=== PATIENT | female | born 1935 | race Caucasian/White ===

== ENCOUNTER 2021-09-22 11:52 | Emergency (ER) | payer MEDICARE, BC ==
[2021-09-22 12:17] VITALS: BP 177/66; PULSE 76
[2021-09-22] MEDS ORDERED: Oxymetazoline 0.05% Nasal Spray 30 ML Bottle NAS ONE (13:18)
--- NOTE | 2021-09-22 13:49 | CR ---
PROCEDURE INFORMATION: Exam: XR Sinus Exam date and time: 09/22/2021 1:22 PM Age: 85 years old Clinical indication: Other: Sinus pain/pressure, bloody mucus drainage TECHNIQUE: Imaging protocol: XR of the sinuses and paranasal structures. Views: Minimum of 3 views. COMPARISON: No relevant prior studies available. FINDINGS: Sinuses: The frontal and maxillary sinuses are grossly clear, without air-fluid level. Bones/joints: No acute fracture is identified. The temporomandibular joints are normally aligned. Dental: Dental amalgam is noted. Soft tissues: The soft tissues appear grossly unremarkable. IMPRESSION: Grossly clear frontal and maxillary sinuses. CT would be more sensitive to sinus disease.
--- NOTE | 2021-09-22 14:16 | EDM.PDOC ---
Scribed by Alina Greene 09/22/21 1347 for Erica Batres MD ED HPI GENERAL MEDICAL PROBLEM - General Chief Complaint: ENT Problem Stated Complaint: SINUS INFECTION Time Seen by Provider: 09/22/21 13:07 Source of Information: Reports: Patient, RN, RN Notes Reviewed History Limitations: Reports: No Limitations - History of Present Illness INITIAL COMMENTS - FREE TEXT/NARRATIVE: Patient presents to ED by POV with complaint of sinuses feeling tight since Thursday with bloody mucus drainage. Denies fever, cough, chest pain, or neck pain/stiffness. Onset: Gradual Duration: Constant Location: Reports: Other (sinuses) Severity: Severe Improves with: Reports: None Worsens with: Reports: None Associated Symptoms: Reports: No Other Symptoms - Related Data Allergies Allergy/AdvReac Type Severity Reaction Status Date / Time amlodipine besylate Allergy Rash Verified 09/22/21 12:13 [From Lotrel] benazepril HCl [From Lotrel] Allergy Rash Verified 09/22/21 12:13 hydrocodone Allergy Rash Verified 09/22/21 12:13 nifedipine Allergy Hives Verified 09/22/21 12:13 rosuvastatin Allergy Body Aches Verified 09/22/21 12:13 Home Meds: Home Meds Aspirin [Halfprin] 81 mg PO DAILY 01/18/16 [History] Calcium Carbonate [Calcium] 1 tab PO BID 01/18/16 [History] Cholecalciferol (Vitamin D3) [Vitamin D3] 2 tab PO DAILY 01/18/16 [History] Enalapril [Vasotec] 20 mg PO BID 01/18/16 [History] Furosemide 40 mg PO DAILY 01/18/16 [History] Insulin NPH/Insulin Reg,Human [NovoLIN 70-30] 80 unit SQ ACBREAKFAST 01/18/16 [History] Latanoprost [Xalatan 0.005% Ophth Soln] 1 drop EYEBOTH BEDTIME 01/18/16 [History] atorvaSTATin [Lipitor] 80 mg PO BEDTIME 01/18/16 [History] carvediloL [Carvedilol] 25 mg PO BID 01/18/16 [History] Clobetasol [Temovate 0.05% Oint] 1 applic TOP ASDIRECTED PRN 06/20/16 [History] Insulin NPH Hum/Reg Insulin Hm [Novolin 70-30 100 Unit/ml Vial] 40 unit SQ ACDINNER 09/18/18 [History] Past Medical History HEENT History: Reports: Glaucoma Cardiovascular History: Reports: High Cholesterol, Hypertension Respiratory History: Reports: Sleep Apnea Gastrointestinal History: Reports: Chronic Constipation, GERD Genitourinary History: Reports: UTI, Recurrent [employer] History: Reports: Musculoskeletal History: Reports: Other (See Below) Other Musculoskeletal History: spinal stenosis Neurological History: Reports: None Psychiatric History: Reports: None Endocrine/Metabolic History: Reports: Diabetes, Type II, Obesity/BMI 30+ Hematologic History: Reports: None Immunologic History: Reports: None Oncologic (Cancer) History: Reports: None Dermatologic History: Reports: None - Infectious Disease History Infectious Disease History: Reports: Chicken Pox, Measles - Past Surgical History HEENT Surgical History: Reports: Adenoidectomy, Tonsillectomy GI Surgical History: Reports: Colonoscopy Musculoskeletal Surgical History: Reports: Hip Replacement Social & Family History - Family History HEENT: Reports: Cataract Cardiac: Reports: None Respiratory: Reports: None GI: Reports: None : Reports: None OBGYN: Reports: None Musculoskeletal: Reports: None Neurological: Reports: None Psychiatric: Reports: None Endocrine/Metabolic: Reports: Diabetes, type II Hematologic: Reports: None Immunologic: Reports: None Oncologic: Reports: Bone - Tobacco Use Tobacco Use Status *Q: Never Tobacco User - Caffeine Use Caffeine Use: Reports: Coffee, Tea - Recreational Drug Use Recreational Drug Use: No - Living Situation & Occupation Occupation: Retired ED ROS ENT - Review of Systems Review Of Systems: Comprehensive ROS is negative, except as noted in HPI. ED EXAM, ENT - Physical Exam Exam: See Below Exam Limited By: No Limitations General Appearance: Alert, WD/WN, No Apparent Distress, Obese Eye Exam: Bilateral Eye: EOMI, Normal Inspection, PERRL Ears: Normal External Exam, Normal Canal, Hearing Grossly Normal, Normal TMs Nose: Nasal Discharge (Yellow with small blood streaks.), Nasal Swelling (Inflammed, swollen, congested nasal mucosa.), Injected Turbinates. No: Active Bleeding, Dried Blood Mouth/Throat: Normal Inspection, Normal Gums, Normal Lips, Normal Oropharynx, Normal Teeth Head: Atraumatic, Normocephalic Neck: Normal Inspection, Supple, Non-Tender, Full Range of Motion Respiratory/Chest: No Respiratory Distress, Lungs Clear, Normal Breath Sounds, No Accessory Muscle Use, Chest Non-Tender Cardiovascular: Regular Rate, Rhythm Neurological: Alert, Oriented, CN II-XII Intact, No Motor/Sensory Deficits Psychiatric: Normal Affect, Normal Mood Skin: Warm, Dry, Intact, Normal Color, No Rash Course - Vital Signs Last Recorded V/S: Last Vital Signs Temp 97.6 F 09/22/21 12:15 Pulse 76 09/22/21 12:15 Resp 18 09/22/21 12:15 BP 177/66 H 09/22/21 12:15 Pulse Ox 97 09/22/21 12:15 - Orders/Labs/Meds Orders: Active Orders 24 hr Category Date Time Status Isolation [COMM] Routine Oth 09/22/21 13:18 Active Labs: Influenza A/B: negative Meds: Medications Discontinued Medications Generic Name Dose Route Start Last Admin Trade Name Freq PRN Reason Stop Dose Admin Oxymetazoline HCl 1 ml 09/22/21 13:18 09/22/21 13:32 Oxymetazoline 0.05% Nasal Thayer 30 Ml Bottle ANIL 09/22/21 13:19 1 ml ONETIME ONE Administration - Radiology Interpretation Free Text/Narrative:: [facility] Final Radiology Report Call: [phone] assistance Online chat: [email or web address] Name: DELROY ESPINOZA Age: 85Years F Date: 09/22/2021 SSN: -- : [id number] Study: CR SINUS COMP MIN 3V Requesting Physician: ERICA BATRES Images: 4 Addl Studies: Provided Clinical History: sinus pain/pressure, bloody mucus drainage Contrast: Contrast Medium: Contrast Amount: Contrast Method: CONFIDENTIALITY STATEMENT This report is intended only for use by the referring physician, and only in accordance with law. If you received this in error, call [phone]. Page 1 of 1 PROCEDURE INFORMATION: Exam: XR Sinus Exam date and time: 09/22/2021 1:22 PM Age: 85 years old Clinical indication: Other: Sinus pain/pressure, bloody mucus drainage TECHNIQUE: Imaging protocol: XR of the sinuses and paranasal structures. Views: Minimum of 3 views. COMPARISON: No relevant prior studies available. FINDINGS: Sinuses: The frontal and maxillary sinuses are grossly clear, without air-fluid level. Bones/joints: No acute fracture is identified. The temporomandibular joints are normally aligned. Dental: Dental amalgam is noted. Soft tissues: The soft tissues appear grossly unremarkable. IMPRESSION: Grossly clear frontal and maxillary sinuses. CT would be more sensitive to sinus disease. Thank you for allowing us to participate in the care of your patient. Dictated and Authenticated by: Alon Mullen MD 09/22/2021 1:48 PM Central Time ([place] & [place]) Departure - Departure Time of Disposition: 14:14 Disposition: Home, Self-Care 01 Condition: Good Clinical Impression: Sinusitis Qualifiers: Sinusitis location: unspecified location Chronicity: acute Recurrence: non- recurrent Qualified Code(s): J01.90 - Acute sinusitis, unspecified - Discharge Information *PRESCRIPTION DRUG MONITORING PROGRAM REVIEWED*: Not Applicable *COPY OF PRESCRIPTION DRUG MONITORING REPORT IN PATIENT [place]: Not Applicable Instructions: Sinusitis, Adult, [id number] Forms: ED Department Discharge Additional Instructions: Rx: Augmentin 875mg Use over the counter Coricidin HBP for a blood pressure safe decongestant. Follow up in clinic if not improving in 7 to 10 days. Sepsis Event Note (ED) - Evaluation Sepsis Screening Result: No Definite Risk - Focused Exam Vital Signs: Vital Signs Temp Pulse Resp BP Pulse Ox 09/22/21 12:15 97.6 F 76 18 177/66 H 97 - My Orders Last 24 Hours: My Active Orders 09/22/21 13:18 Isolation [COMM] Routine - Assessment/Plan Last 24 Hours: My Active Orders 09/22/21 13:18 Isolation [COMM] Routine I have read and agree with the documentation that has been completed regarding this visit. By signing this record, I attest that the documentation was completed in my physical presence and is an accurate record of the encounter.
== END 2021-09-22 14:24 | disposition home or self-care (01) ==
LOC: DL.ED 11:52
DX: J01.90 Acute sinusitis, unspecified (principal); I10 Essential (primary) hypertension; E78.00 Pure hypercholesterolemia, unspecified; K21.9 Gastro-esophageal reflux disease without esophagitis; E11.9 Type 2 diabetes mellitus without complications; E66.9 Obesity, unspecified; Z68.32 Body mass index [BMI] 32.0-32.9, adult; Z79.82 Long term (current) use of aspirin; Z79.899 Other long term (current) drug therapy; Z88.8 Allergy status to other drugs, medicaments and biological substances; Z88.1 Allergy status to other antibiotic agents; Z79.4 Long term (current) use of insulin
CPT/HCPCS: 70220; 87804; 99283; A9270

== ENCOUNTER 2022-01-07 23:16 | Inpatient (IN) | payer MEDICARE, BC ==
[2022-01-08] MEDS: Sodium Chloride 0.9% 10 ML Syringe FLUSH PRN ×3 (00:16→07:53)
[2022-01-08 00:43] LABS: ANION GAP 12.9 mEq/L (7-13)
[2022-01-08] MEDS ORDERED: Enalaprilat 1.25 MG/ML SDV IVPUSH ONE ×2 (02:09→02:13)
[2022-01-08] MEDS ORDERED: Labetalol 20 MG/4 ML Syringe IVPUSH ONE (02:18)
[2022-01-08] MEDS ORDERED: Acetaminophen 500 MG Tab PO ONE (04:02)
[2022-01-08] MEDS ORDERED: Acetaminophen/oxyCODONE 325-5 MG Tab PO PRN (05:21)
[2022-01-08] MEDS ORDERED: Magnesium Hydroxide 400 MG/5 ML Susp 30 ML Cup PO PRN (05:21)
[2022-01-08] MEDS ORDERED: Polyethylene Glycol 3350 Powder 17 GM Packet PO PRN (05:21)
[2022-01-08] MEDS ORDERED: HYDROmorphone 0.5 MG/0.5 ML Syringe IVPUSH PRN (05:21)
[2022-01-08] MEDS ORDERED: Ondansetron 4 MG/2 ML SDV IVPUSH PRN (05:21)
[2022-01-08] MEDS ORDERED: Bisacodyl 5 MG Tab PO PRN (05:21)
[2022-01-08] MEDS ORDERED: Albuterol/Ipratropium 3.0-0.5 MG/3 ML Neb Soln NEB PRN (05:21)
[2022-01-08] MEDS ORDERED: methylPREDNISolone Sodium Succinate 40 MG/1 ML SDV IVPUSH ONE (05:41)
[2022-01-08] MEDS ORDERED: diphenhydrAMINE 50 MG/ML SDV IVPUSH ONE (05:41)
[2022-01-08] MEDS ORDERED: Famotidine 20 MG/2 ML SDV IVPUSH ONE (05:41)
[2022-01-08] MEDS ORDERED: niCARdipine HCl 25 MG in Sodium Chloride 0.9% 240 ML IV SCH (05:45)
[2022-01-08] MEDS: cloNIDine 0.1 MG Tab PO SCH ×2 (10:57→20:21)
[2022-01-08] MEDS: Aspirin 81 MG Tab.EC PO SCH (10:57)
[2022-01-08] MEDS: Acetaminophen 325 MG Tab PO PRN (13:04)
[2022-01-08] MEDS ORDERED: CLOBETASOL TOP PRN (16:28)
[2022-01-08] MEDS: Insulin NPH HUM/REG Insulin HM 100 UNIT/ML 3 ML Vial SQ SCH (17:18)
[2022-01-08] MEDS: Latanoprost 0.005% Ophth Soln 2.5 ML Bottle EYEBOTH SCH (20:20)
[2022-01-08] MEDS: Calcium Carbonate 500 MG Tab.Chew PO SCH (20:21)
[2022-01-08] MEDS: atorvaSTATin 20 MG Tab PO SCH (20:21)
[2022-01-08] MEDS ORDERED: hydrALAZINE 25 MG Tab PO SCH (21:00)
[2022-01-08] MEDS: Carvedilol 25 MG Tab PO SCH (21:09)
[2022-01-08] MEDS: hydrALAZINE 25 MG Tab PO SCH (21:10)
[2022-01-08] MEDS ORDERED: 50% Dextrose in Water 50 ML Syringe IVPUSH PRN ×2 (21:46→21:57)
[2022-01-08] MEDS ORDERED: Glucagon,Human Recombinant 1 MG Vial IM PRN ×2 (21:46→21:57)
[2022-01-08] MEDS ORDERED: Insulin Lispro 100 Units/ML 3 ML Vial SUBCUT ONE (21:57)
[2022-01-09] MEDS ORDERED: Insulin NPH HUM/REG Insulin HM 100 UNIT/ML 3 ML Vial SQ SCH (06:00)
[2022-01-09 08:26] LABS: ANION GAP 15.4 mEq/L (7-13)
[2022-01-09] MEDS: cloNIDine 0.1 MG Tab PO SCH ×2 (08:52→20:42)
[2022-01-09] MEDS: hydrALAZINE 25 MG Tab PO SCH ×2 (08:53→20:41)
[2022-01-09] MEDS: Calcium Carbonate 500 MG Tab.Chew PO SCH ×2 (08:54→20:42)
[2022-01-09] MEDS: Aspirin 81 MG Tab.EC PO SCH (08:54)
[2022-01-09] MEDS: Carvedilol 25 MG Tab PO SCH ×2 (08:54→20:39)
[2022-01-09] MEDS: Furosemide 40 MG Tab PO SCH (08:55)
[2022-01-09] MEDS: Cholecalciferol (Vitamin D3) 25 MCG Tab PO SCH (08:55)
[2022-01-09] MEDS: Insulin Lispro 100 Units/ML 3 ML Vial SUBCUT SCH ×3 (09:01→17:09)
[2022-01-09] MEDS: Insulin NPH HUM/REG Insulin HM 100 UNIT/ML 3 ML Vial SQ SCH (17:20)
[2022-01-09] MEDS ORDERED: hydrALAZINE 20 MG/ML SDV IVPUSH PRN (17:31)
[2022-01-09] MEDS: atorvaSTATin 20 MG Tab PO SCH (20:29)
[2022-01-09] MEDS: Dorzolamide/Timolol 2%-0.5% Ophth Soln 10 ML Bottle EYEBOTH SCH (20:43)
[2022-01-09] MEDS: Latanoprost 0.005% Ophth Soln 2.5 ML Bottle EYEBOTH SCH (20:43)
[2022-01-09] MEDS: Triamcinolone Acetonide 0.1% Crm 15 GM Tube TOP SCH (20:45)
[2022-01-09] MEDS: Sodium Chloride 0.9% 10 ML Syringe FLUSH PRN (20:50)
[2022-01-09] MEDS ORDERED: TIMOLOL MALEAT EYEBOTH SCH (21:00)
[2022-01-09] MEDS ORDERED: [UNRECOGNIZED DRUG - OTHER] EYEBOTH SCH (21:00)
[2022-01-09] MEDS ORDERED: DORZOLAMIDE HCL EYEBOTH SCH (21:00)
[2022-01-10 06:19] LABS: ANION GAP 14.5 mEq/L (7-13)
[2022-01-10] MEDS ORDERED: Insulin NPH HUM/REG Insulin HM 100 UNIT/ML 3 ML Vial SQ SCH (07:30)
[2022-01-10] MEDS ORDERED: Insulin Glarg,Human.Rec.Analog 100 Unit/ML SUBCUT SCH (09:00)
[2022-01-10] MEDS: Insulin Lispro 100 Units/ML 3 ML Vial SUBCUT SCH ×3 (09:45→17:10)
[2022-01-10] MEDS: cloNIDine 0.1 MG Tab PO SCH ×2 (10:07→20:00)
[2022-01-10] MEDS: Carvedilol 25 MG Tab PO SCH (10:07)
[2022-01-10] MEDS: Furosemide 40 MG Tab PO SCH (10:07)
[2022-01-10] MEDS: Cholecalciferol (Vitamin D3) 25 MCG Tab PO SCH (10:26)
[2022-01-10] MEDS: Calcium Carbonate 500 MG Tab.Chew PO SCH ×2 (10:26→20:00)
[2022-01-10] MEDS: Aspirin 81 MG Tab.EC PO SCH (10:27)
[2022-01-10] MEDS: hydrALAZINE 25 MG Tab PO SCH ×2 (10:28→20:00)
[2022-01-10] MEDS ORDERED: cloNIDine 0.1 MG Tab PO ONE (10:30)
[2022-01-10] MEDS: Triamcinolone Acetonide 0.1% Crm 15 GM Tube TOP SCH (10:31)
[2022-01-10] MEDS: Dorzolamide/Timolol 2%-0.5% Ophth Soln 10 ML Bottle EYEBOTH SCH ×2 (10:32→20:00)
[2022-01-10] MEDS: cefTRIAXone 1 GM in Sodium Chloride 0.9% 50 ML IV SCH (18:05)
[2022-01-10] MEDS: Latanoprost 0.005% Ophth Soln 2.5 ML Bottle EYEBOTH SCH (20:00)
[2022-01-10] MEDS: Insulin Glarg,Human.Rec.Analog 100 Unit/ML SUBCUT SCH (20:01)
[2022-01-10] MEDS: Acetaminophen 325 MG Tab PO PRN (20:01)
[2022-01-10] MEDS: atorvaSTATin 20 MG Tab PO SCH (20:01)
[2022-01-11] MEDS: Triamcinolone Acetonide 0.1% Crm 15 GM Tube TOP SCH ×3 (01:11→20:41)
[2022-01-11 06:40] LABS: ANION GAP 14.1 mEq/L (7-13)
[2022-01-11] MEDS: Insulin Lispro 100 Units/ML 3 ML Vial SUBCUT SCH ×4 (08:27→20:40)
[2022-01-11] MEDS: hydrALAZINE 25 MG Tab PO SCH ×2 (08:28→20:38)
[2022-01-11] MEDS: Aspirin 81 MG Tab.EC PO SCH (08:28)
[2022-01-11] MEDS: Furosemide 40 MG Tab PO SCH (08:28)
[2022-01-11] MEDS: Cholecalciferol (Vitamin D3) 25 MCG Tab PO SCH (08:29)
[2022-01-11] MEDS: cloNIDine 0.1 MG Tab PO SCH ×2 (08:29→20:39)
[2022-01-11] MEDS: Calcium Carbonate 500 MG Tab.Chew PO SCH ×2 (08:30→20:39)
[2022-01-11] MEDS: Dorzolamide/Timolol 2%-0.5% Ophth Soln 10 ML Bottle EYEBOTH SCH ×2 (08:31→20:39)
[2022-01-11] MEDS ORDERED: amLODIPine 5 MG Tab PO ONE ×2 (09:00→09:35)
[2022-01-11] MEDS ORDERED: Lisinopril 10 MG Tab PO SCH (09:00)
[2022-01-11] MEDS: Insulin Glarg,Human.Rec.Analog 100 Unit/ML SUBCUT SCH ×2 (09:05→20:40)
[2022-01-11] MEDS: Lisinopril 20 MG Tab PO SCH (09:50)
[2022-01-11] MEDS: cefTRIAXone 1 GM in Sodium Chloride 0.9% 50 ML IV SCH (17:10)
[2022-01-11] MEDS: Sodium Chloride 0.9% 10 ML Syringe FLUSH PRN (17:10)
[2022-01-11] MEDS: atorvaSTATin 20 MG Tab PO SCH (20:39)
[2022-01-11] MEDS: amLODIPine 5 MG Tab PO SCH (20:39)
[2022-01-11] MEDS: Latanoprost 0.005% Ophth Soln 2.5 ML Bottle EYEBOTH SCH (20:39)
[2022-01-12] MEDS: Insulin Lispro 100 Units/ML 3 ML Vial SUBCUT SCH ×3 (08:29→17:37)
[2022-01-12] MEDS: cloNIDine 0.1 MG Tab PO SCH ×2 (08:49→20:49)
[2022-01-12] MEDS: Lisinopril 20 MG Tab PO SCH (08:50)
[2022-01-12] MEDS: Furosemide 40 MG Tab PO SCH (08:50)
[2022-01-12] MEDS: Aspirin 81 MG Tab.EC PO SCH (08:50)
[2022-01-12] MEDS: hydrALAZINE 25 MG Tab PO SCH ×2 (08:51→20:49)
[2022-01-12] MEDS: Calcium Carbonate 500 MG Tab.Chew PO SCH ×2 (08:51→20:48)
[2022-01-12] MEDS: Cholecalciferol (Vitamin D3) 25 MCG Tab PO SCH (08:51)
[2022-01-12] MEDS: Dorzolamide/Timolol 2%-0.5% Ophth Soln 10 ML Bottle EYEBOTH SCH ×2 (08:52→20:51)
[2022-01-12] MEDS: Triamcinolone Acetonide 0.1% Crm 15 GM Tube TOP SCH ×2 (08:52→20:51)
[2022-01-12] MEDS: Insulin Glarg,Human.Rec.Analog 100 Unit/ML SUBCUT SCH ×2 (08:58→22:45)
[2022-01-12] MEDS: Sodium Chloride 0.9% 10 ML Syringe FLUSH PRN ×2 (17:54→20:52)
[2022-01-12] MEDS: cefTRIAXone 1 GM in Sodium Chloride 0.9% 50 ML IV SCH (17:59)
[2022-01-12] MEDS: Acetaminophen 325 MG Tab PO PRN (19:25)
[2022-01-12] MEDS: atorvaSTATin 20 MG Tab PO SCH (20:49)
[2022-01-12] MEDS: amLODIPine 5 MG Tab PO SCH (20:50)
[2022-01-12] MEDS: Latanoprost 0.005% Ophth Soln 2.5 ML Bottle EYEBOTH SCH (20:51)
[2022-01-13] MEDS: Insulin Lispro 100 Units/ML 3 ML Vial SUBCUT SCH ×3 (08:36→16:52)
[2022-01-13] MEDS: cloNIDine 0.1 MG Tab PO SCH ×2 (08:45→21:28)
[2022-01-13] MEDS: amLODIPine 5 MG Tab PO SCH ×2 (08:46→21:30)
[2022-01-13] MEDS: Lisinopril 20 MG Tab PO SCH (08:46)
[2022-01-13] MEDS: Cholecalciferol (Vitamin D3) 25 MCG Tab PO SCH (08:47)
[2022-01-13] MEDS: Furosemide 40 MG Tab PO SCH (08:48)
[2022-01-13] MEDS: Triamcinolone Acetonide 0.1% Crm 15 GM Tube TOP SCH ×2 (08:48→21:24)
[2022-01-13] MEDS: Aspirin 81 MG Tab.EC PO SCH (08:48)
[2022-01-13] MEDS: hydrALAZINE 25 MG Tab PO SCH ×2 (08:48→21:27)
[2022-01-13] MEDS: Calcium Carbonate 500 MG Tab.Chew PO SCH ×2 (08:48→21:30)
[2022-01-13] MEDS: Dorzolamide/Timolol 2%-0.5% Ophth Soln 10 ML Bottle EYEBOTH SCH ×2 (08:49→21:25)
[2022-01-13] MEDS: Insulin Glarg,Human.Rec.Analog 100 Unit/ML SUBCUT SCH ×2 (08:52→21:33)
[2022-01-13] MEDS ORDERED: Sodium Chloride 0.9% 10 ML Syringe FLUSH PRN (12:56)
[2022-01-13] MEDS: cefTRIAXone 1 GM in Sodium Chloride 0.9% 50 ML IV SCH (17:39)
[2022-01-13] MEDS: atorvaSTATin 20 MG Tab PO SCH (21:29)
[2022-01-13] MEDS: Latanoprost 0.005% Ophth Soln 2.5 ML Bottle EYEBOTH SCH (21:31)
[2022-01-14] MEDS: Insulin Lispro 100 Units/ML 3 ML Vial SUBCUT SCH ×2 (08:17→12:20)
[2022-01-14] MEDS: amLODIPine 5 MG Tab PO SCH (08:17)
[2022-01-14] MEDS: cloNIDine 0.1 MG Tab PO SCH (08:17)
[2022-01-14] MEDS: Cholecalciferol (Vitamin D3) 25 MCG Tab PO SCH (08:17)
[2022-01-14] MEDS: Aspirin 81 MG Tab.EC PO SCH (08:18)
[2022-01-14] MEDS: hydrALAZINE 25 MG Tab PO SCH (08:18)
[2022-01-14] MEDS: Lisinopril 20 MG Tab PO SCH (08:18)
[2022-01-14] MEDS: Calcium Carbonate 500 MG Tab.Chew PO SCH (08:18)
[2022-01-14] MEDS: Dorzolamide/Timolol 2%-0.5% Ophth Soln 10 ML Bottle EYEBOTH SCH (08:23)
[2022-01-14] MEDS: Triamcinolone Acetonide 0.1% Crm 15 GM Tube TOP SCH (08:24)
[2022-01-14 08:27] VITALS: PULSE 68
[2022-01-14] MEDS: Insulin Glarg,Human.Rec.Analog 100 Unit/ML SUBCUT SCH (08:28)
[2022-01-14] MEDS ORDERED: Chlorthalidone 25 MG Tab PO SCH (09:00)
[2022-01-14 12:37] VITALS: BP 141/63
== END 2022-01-14 13:20 | disposition home or self-care (01) | DRG 638 ==
LOC: DL.ED 23:16 → DL.MS 01-08 05:31
PROVIDERS: ADMIT Internal Medicine; ATTEND Internal Medicine
DX: E11.65 Type 2 diabetes mellitus with hyperglycemia (principal); I11.9 Hypertensive heart disease without heart failure; G47.30 Sleep apnea, unspecified; N18.4 Chronic kidney disease, stage 4 (severe); Z68.41 Body mass index [BMI] 40.0-44.9, adult; E11.9 Type 2 diabetes mellitus without complications; I16.0 Hypertensive urgency; H40.9 Unspecified glaucoma; E78.5 Hyperlipidemia, unspecified; G47.33 Obstructive sleep apnea (adult) (pediatric); K21.9 Gastro-esophageal reflux disease without esophagitis; K59.09 Other constipation; Z20.822 Contact with and (suspected) exposure to COVID-19; M19.90 Unspecified osteoarthritis, unspecified site; E11.22 Type 2 diabetes mellitus with diabetic chronic kidney disease; I12.9 Hypertensive chronic kidney disease with stage 1 through stage 4 chronic kidney disease, or unspecified chronic kidney disease; E66.01 Morbid (severe) obesity due to excess calories; N34.2 Other urethritis; E78.00 Pure hypercholesterolemia, unspecified; Z96.649 Presence of unspecified artificial hip joint; Z79.4 Long term (current) use of insulin; Z79.82 Long term (current) use of aspirin; Z79.899 Other long term (current) drug therapy; Z88.8 Allergy status to other drugs, medicaments and biological substances
CPT/HCPCS: 36415; 70450; 76770; 80053; 81001; 82088; 82384; 82947; 83735; 84439; 84443; 84484; 85025; 85610; 85730; 87086; 93005; 93976; 97165-GO; A9270-GY; J0696; J1200; J1815-GY; J2405; J2920; J3490; J7050; U0002

== ENCOUNTER 2022-01-18 22:50 | Emergency (ER) | payer MEDICARE, BC ==
[2022-01-18] MEDS ORDERED: Sodium Chloride 0.9% 10 ML Syringe FLUSH PRN (23:23)
[2022-01-19 00:07] LABS: ANION GAP 13.8 mEq/L (7-13)
[2022-01-19 00:08] VITALS: BP 146/69; PULSE 78
[2022-01-19] MEDS ORDERED: cefTRIAXone 1 GM in Sodium Chloride 0.9% 50 ML IV ONE (01:05)
== END 2022-01-19 01:54 | disposition home or self-care (01) ==
LOC: DL.ED 22:50
DX: N34.2 Other urethritis (principal); E78.00 Pure hypercholesterolemia, unspecified; I10 Essential (primary) hypertension; K21.9 Gastro-esophageal reflux disease without esophagitis; E11.9 Type 2 diabetes mellitus without complications; E66.9 Obesity, unspecified; Z68.41 Body mass index [BMI] 40.0-44.9, adult; Z88.5 Allergy status to narcotic agent; Z88.8 Allergy status to other drugs, medicaments and biological substances; Z79.82 Long term (current) use of aspirin; Z79.4 Long term (current) use of insulin; Z79.899 Other long term (current) drug therapy
CPT/HCPCS: 36415; 80053; 81001; 82947; 84443; 85025; 87086; 96365; 99284; J0696; J3490

== ENCOUNTER 2022-07-05 09:00 | Emergency (ER) | payer MEDICARE, BC ==
[2022-07-05] MEDS ORDERED: cloNIDine 0.1 MG Tab PO ONE (22:50)
[2022-07-29 13:28] LABS: ANION GAP 14.7 mEq/L (7-13); CHLORIDE,CL 102 mmol/L (98-107); ESTIMATED GFR 36 mL/min (>=60); SODIUM,NA 142 mmol/L (136-145)
== END 2022-07-06 01:06 | disposition home or self-care (01) ==
LOC: DL.ED 09:00
DX: I10 Essential (primary) hypertension (principal); E11.9 Type 2 diabetes mellitus without complications
CPT/HCPCS: 36415; 71045; 80053; 81001; 83880; 85025; 86140; 87086; 99283

== ENCOUNTER 2023-08-21 11:52 | Emergency (ER) | payer MEDICARE, BC ==
[2023-08-21] MEDS ORDERED: Diphtheria,Pertussis(Acell),Tetanus Vaccine 0.5 ML Syringe IM ONE (12:22)
[2023-08-21] MEDS ORDERED: Bacitracin Oint 1 GM U/D Packet TOP ONE (12:23)
[2023-08-21 12:28] VITALS: BP 153/64; PULSE 73
[2023-08-21 12:59] LABS: APPEARANCE,URINE CLEAR (CLEAR); BILIRUBIN,URINE NEGATIVE (NEGATIVE); GLUCOSE,URINE >=1000 (NEGATIVE); KETONES,URINE NEGATIVE (NEGATIVE); LEUKOCYTE ESTERASE,URINE SMALL (NEGATIVE); NITRITE,URINE NEGATIVE (NEGATIVE); OCCULT BLOOD,URINE NEGATIVE (NEGATIVE); PH,URINE 5.5 (5.0-9.0); PROTEIN,URINE NEGATIVE (NEGATIVE); UROBILINOGEN,URINE 0.2 mg/dL (0.2-1.0)
[2023-08-21 13:01] LABS: COLOR,URINE YELLOW (YELLOW)
[2023-08-21 13:09] LABS: EPITHELIAL CELLS,URINE RARE /HPF (NOT SEEN); RBC,URINE NOT SEEN /HPF (0-5); WBC,URINE 0-5 /HPF (0-5/HPF)
[2023-08-21 13:10] LABS: BACTERIA,URINE RARE /HPF (0-FEW/HPF); MUCUS,URINE NOT SEEN /LPF (NOT SEEN)
== END 2023-08-21 13:45 | disposition home or self-care (01) ==
LOC: DL.ED 11:52
DX: S61.411A Laceration without foreign body of right hand, initial encounter (principal); R42 Dizziness and giddiness; E78.00 Pure hypercholesterolemia, unspecified; I10 Essential (primary) hypertension; E11.9 Type 2 diabetes mellitus without complications; I25.10 Atherosclerotic heart disease of native coronary artery without angina pectoris; E66.9 Obesity, unspecified; W01.0XXA Fall on same level from slipping, tripping and stumbling without subsequent striking against object, initial encounter; Z68.38 Body mass index [BMI] 38.0-38.9, adult; Z23 Encounter for immunization; Z95.5 Presence of coronary angioplasty implant and graft; Z79.02 Long term (current) use of antithrombotics/antiplatelets; Z88.5 Allergy status to narcotic agent; Z88.8 Allergy status to other drugs, medicaments and biological substances; Z79.899 Other long term (current) drug therapy
CPT/HCPCS: 81001; 82947; 87086; 90471; 90715; 93010; 99284; 99284-25; A9270-GY

== ENCOUNTER 2023-09-04 15:36 | Emergency (ER) | payer MEDICARE, BC ==
[2023-09-04 16:25] VITALS: BP 156/71; PULSE 76
== END 2023-09-04 18:45 | disposition home or self-care (01) ==
LOC: DL.ED 15:36
DX: H81.10 Benign paroxysmal vertigo, unspecified ear (principal); I10 Essential (primary) hypertension; I25.10 Atherosclerotic heart disease of native coronary artery without angina pectoris; E78.00 Pure hypercholesterolemia, unspecified; E11.9 Type 2 diabetes mellitus without complications; E66.9 Obesity, unspecified; Z79.82 Long term (current) use of aspirin; Z79.899 Other long term (current) drug therapy; Z79.4 Long term (current) use of insulin; Z79.2 Long term (current) use of antibiotics; Z88.8 Allergy status to other drugs, medicaments and biological substances; Z68.37 Body mass index [BMI] 37.0-37.9, adult; W19.XXXA Unspecified fall, initial encounter
CPT/HCPCS: 71250; 99284

== ENCOUNTER 2023-09-26 13:16 | Emergency (ER) | payer MEDICARE, BC ==
[2023-09-26 14:21] VITALS: BP 133/31; PULSE 82
[2023-09-26 14:41] LABS: APPEARANCE,URINE CLOUDY (CLEAR); BILIRUBIN,URINE SMALL (NEGATIVE); COLOR,URINE DARK YELLOW (YELLOW); GLUCOSE,URINE NEGATIVE (NEGATIVE); KETONES,URINE 15 (NEGATIVE); LEUKOCYTE ESTERASE,URINE LARGE (NEGATIVE); NITRITE,URINE POSITIVE (NEGATIVE); OCCULT BLOOD,URINE LARGE (NEGATIVE); PH,URINE 5.5 (5.0-9.0); PROTEIN,URINE >=300 (NEGATIVE); UROBILINOGEN,URINE 0.2 mg/dL (0.2-1.0)
[2023-09-26 14:51] LABS: AMORPHOUS SEDIMENT,URINE MODERATE /HPF (NOT SEEN); BACTERIA,URINE MANY /HPF (0-FEW/HPF); EPITHELIAL CELLS,URINE FEW /HPF (NOT SEEN); MUCUS,URINE FEW /LPF (NOT SEEN); RBC,URINE PACKED /HPF (0-5); WBC,URINE PACKED /HPF (0-5/HPF)
[2023-09-26] MEDS ORDERED: cefTRIAXone 1 GM, Lidocaine 1% 2.1 ML IM ONE ×2 (17:09)
[2023-09-26] MEDS ORDERED: Take Home: Ciprofloxacin HCl 500 MG, 6 Tab Pack PO ONE (17:22)
== END 2023-09-26 18:00 | disposition home or self-care (01) ==
LOC: DL.ED 13:16
DX: N39.0 Urinary tract infection, site not specified (principal); R31.9 Hematuria, unspecified; E78.00 Pure hypercholesterolemia, unspecified; I10 Essential (primary) hypertension; K21.9 Gastro-esophageal reflux disease without esophagitis; E11.9 Type 2 diabetes mellitus without complications; E66.9 Obesity, unspecified
CPT/HCPCS: 81001; 87086; 87088; 87186; 96372; 99283; 99284; A9270; J0696; J3490

== ENCOUNTER 2023-12-23 21:51 | Emergency (ER) | payer MEDICARE, BC ==
[2023-12-23] MEDS ORDERED: 50% Dextrose in Water 50 ML Syringe IVPUSH PRN (22:13)
[2023-12-23] MEDS ORDERED: Glucagon,Human Recombinant 1 MG Vial IM PRN (22:13)
[2023-12-23 22:35] LABS: APPEARANCE,URINE CLEAR (CLEAR); BILIRUBIN,URINE NEGATIVE (NEGATIVE); COLOR,URINE YELLOW (YELLOW); GLUCOSE,URINE 500 (NEGATIVE); KETONES,URINE NEGATIVE (NEGATIVE); LEUKOCYTE ESTERASE,URINE TRACE (NEGATIVE); NITRITE,URINE NEGATIVE (NEGATIVE); OCCULT BLOOD,URINE NEGATIVE (NEGATIVE); PROTEIN,URINE NEGATIVE (NEGATIVE); UROBILINOGEN,URINE 0.2 mg/dL (0.2-1.0)
[2023-12-23 22:38] LABS: BASOPHILS PERCENT AUTO 0.6 % (0.0-1.0); EOSINOPHILS PERCENT AUTO 0.8 % (1.0-3.0); HEMATOCRIT 34.8 % (37.0-47.0); HEMOGLOBIN 10.8 g/dL (12.0-16.0); LYMPHOCYTES PERCENT AUTO 10.3 % (20.5-50.1); MEAN CORPUSCULAR HEMOGLOBIN 28.1 pg (27.0-34.0); MEAN CORPUSCULAR VOLUME 90.6 fL (80-100); MONOCYTES PERCENT AUTO 9.6 % (2-8); NEUTROPHILS PERCENT AUTO 78.7 % (42.2-75.2); PLATELET COUNT,PLT 213 10^3/uL (150-450); RED BLOOD CELL COUNT 3.84 10^6/uL (4.2-5.4); WHITE BLOOD CELL COUNT,WBC 10.3 10^3/uL (5.0-10.0)
[2023-12-23] MEDS: Sodium Chloride 0.9% 10 ML Syringe FLUSH PRN (22:52)
[2023-12-23] MEDS: Insulin Regular, Human 100 Units/ML 3 ML Vial IV ONE (22:52)
[2023-12-23 22:58] LABS: ALANINE AMINOTRANSFERASE,ALT 31 U/L (14-59); ALBUMIN 3.2 g/dL (3.4-5.0); ALKALINE PHOSPHATASE 113 U/L (46-116); ANION GAP 9.3 mEq/L (7-13); ASPARTATE AMNIOTRANSFERASE,AST 14 U/L (15-37); BILIRUBIN TOTAL 0.5 mg/dL (0.2-1.0); BLOOD UREA NITROGEN,BUN 35 mg/dL (7-18); BUN/CREATININE RATIO 15.4 (No establ ref range); C-REACTIVE PROTEIN 1.41 ng/dL (<=0.50); CARBON DIOXIDE,CO2 32 mmol/L (21-32); CHLORIDE,CL 99 mmol/L (98-107); CREATININE 2.28 mg/dL (0.55-1.02); POTASSIUM,K 4.3 mmol/L (3.5-5.1); PROTEIN TOTAL,TP 6.4 g/dL (6.4-8.2); SODIUM,NA 136 mmol/L (136-145)
[2023-12-23 23:00] LABS: ESTIMATED GFR 20 mL/min (>=60); GLUCOSE RANDOM 451 mg/dL (70-99)
[2023-12-23 23:03] VITALS: BP 167/69; PULSE 62
[2023-12-23 23:39] LABS: BACTERIA,URINE FEW /HPF (0-FEW/HPF); EPITHELIAL CELLS,URINE RARE /HPF (NOT SEEN); RBC,URINE 0-5 /HPF (0-5)
[2023-12-23] MEDS: Nitrofurantoin Monohydrate/Macrocrystalline 100 MG Cap PO ONE (23:56)
== END 2023-12-24 00:05 | disposition home or self-care (01) ==
LOC: DL.ED 21:51
DX: E11.65 Type 2 diabetes mellitus with hyperglycemia (principal); N34.2 Other urethritis; I25.10 Atherosclerotic heart disease of native coronary artery without angina pectoris; E78.00 Pure hypercholesterolemia, unspecified; I10 Essential (primary) hypertension; Z88.0 Allergy status to penicillin; Z88.8 Allergy status to other drugs, medicaments and biological substances; Z88.5 Allergy status to narcotic agent; Z79.899 Other long term (current) drug therapy; Z95.5 Presence of coronary angioplasty implant and graft; Z79.4 Long term (current) use of insulin; Z86.19 Personal history of other infectious and parasitic diseases
CPT/HCPCS: 36415; 80053; 81001; 82947; 85025; 86140; 87086; 99284; 99285; A9270-GY; J1815-GY; J3490

== ENCOUNTER 2024-02-11 20:25 | Emergency (ER) | payer MEDICARE, BC ==
[2024-02-11] MEDS ORDERED: 50% Dextrose in Water 50 ML Syringe IVPUSH PRN ×3 (20:47→22:42)
[2024-02-11] MEDS ORDERED: Sodium Chloride 0.9% 10 ML Syringe FLUSH PRN (20:47)
[2024-02-11] MEDS ORDERED: Glucagon,Human Recombinant 1 MG Vial IM PRN ×3 (20:47→22:42)
[2024-02-11] MEDS: Insulin Lispro 100 Units/ML 3 ML Vial SUBCUT ONE ×3 (21:00→22:55)
[2024-02-11 21:01] LABS: HEMATOCRIT 33.3 % (37.0-47.0); HEMOGLOBIN 10.4 g/dL (12.0-16.0); MEAN CORPUSCULAR HEMOGLOBIN 28.1 pg (27.0-34.0); MEAN CORPUSCULAR HGB CONC 31.2 g/dL (33.0-35.0); PLATELET COUNT,PLT 202 10^3/uL (150-450)
[2024-02-11 21:03] LABS: BASOPHILS PERCENT AUTO 0.3 % (0.0-1.0); EOSINOPHILS PERCENT AUTO 0.8 % (1.0-3.0); LYMPHOCYTES PERCENT AUTO 9.5 % (20.5-50.1); MONOCYTES PERCENT AUTO 8.5 % (2-8); NEUTROPHILS PERCENT AUTO 80.9 % (42.2-75.2)
[2024-02-11 21:16] LABS: BAND PERCENT MAN 1 %; EOSINOPHILS PERCENT MAN 1 % (1-3); LYMPHOCYTES PERCENT MAN 5 % (20-50); MONOCYTES PERCENT MAN 9 % (2-8); SEG NEUTROPHILS PERCENT MAN 84 % (42-75)
[2024-02-11 21:21] LABS: ANION GAP 12.1 mEq/L (7-13); BILIRUBIN TOTAL 0.4 mg/dL (0.2-1.0); BUN/CREATININE RATIO 26.2 (No establ ref range); CALCIUM 8.7 mg/dL (8.5-10.1); CREATININE 1.95 mg/dL (0.55-1.02); EST CRCL DRUG DOSING (CG) 17.88 mL/min; POTASSIUM,K 5.1 mmol/L (3.5-5.1); PROTEIN TOTAL,TP 6.2 g/dL (6.4-8.2)
[2024-02-11 21:23] LABS: A/G RATIO 0.94
[2024-02-11 23:36] VITALS: BP 165/40; PULSE 57
== END 2024-02-11 23:48 | disposition home or self-care (01) ==
LOC: DL.ED 20:25
DX: E11.65 Type 2 diabetes mellitus with hyperglycemia (principal); I10 Essential (primary) hypertension; I25.10 Atherosclerotic heart disease of native coronary artery without angina pectoris; E78.00 Pure hypercholesterolemia, unspecified; E66.9 Obesity, unspecified; Z79.52 Long term (current) use of systemic steroids; Z79.899 Other long term (current) drug therapy; Z79.4 Long term (current) use of insulin; Z88.5 Allergy status to narcotic agent; Z88.8 Allergy status to other drugs, medicaments and biological substances; Z68.37 Body mass index [BMI] 37.0-37.9, adult
CPT/HCPCS: 36415; 80053; 82947; 85025; 99285; J1815

== ENCOUNTER 2024-04-04 21:27 | Emergency (ER) | payer MEDICARE, BC ==
[2024-04-04] MEDS ORDERED: 50% Dextrose in Water 50 ML Syringe IVPUSH PRN ×2 (21:39→23:07)
[2024-04-04] MEDS ORDERED: Glucagon,Human Recombinant 1 MG Vial IM PRN ×2 (21:39→23:07)
[2024-04-04 21:54] LABS: BASOPHILS PERCENT AUTO 0.7 % (0.0-1.0); EOSINOPHILS PERCENT AUTO 1.6 % (1.0-3.0); HEMOGLOBIN 10.4 g/dL (12.0-16.0); LYMPHOCYTES PERCENT AUTO 12.6 % (20.5-50.1); MEAN CORPUSCULAR HEMOGLOBIN 29.1 pg (27.0-34.0); MEAN CORPUSCULAR HGB CONC 31.5 g/dL (33.0-35.0); MEAN CORPUSCULAR VOLUME 92.4 fL (80-100); MONOCYTES PERCENT AUTO 10.4 % (2-8); NEUTROPHILS PERCENT AUTO 74.7 % (42.2-75.2); PLATELET COUNT,PLT 210 10^3/uL (150-450); RED BLOOD CELL COUNT 3.57 10^6/uL (4.2-5.4); WHITE BLOOD CELL COUNT,WBC 8.3 10^3/uL (5.0-10.0)
[2024-04-04 21:58] VITALS: BP 192/62; PULSE 66
[2024-04-04] MEDS: Insulin Regular, Human 100 Units/ML 3 ML Vial IV ONE ×2 (22:07→23:25)
[2024-04-04] MEDS: Sodium Chloride 0.9% 500 ML IV SCH (22:08)
[2024-04-04 22:12] LABS: B-TYPE NATRIURETIC PEPTIDE,BNP 109 pg/ml (0-100)
[2024-04-04 22:20] LABS: ALANINE AMINOTRANSFERASE,ALT 28 U/L (14-59); ALKALINE PHOSPHATASE 114 U/L (46-116); ANION GAP 11.5 mEq/L (7-13); ASPARTATE AMNIOTRANSFERASE,AST 12 U/L (15-37); BILIRUBIN TOTAL 0.4 mg/dL (0.2-1.0); BLOOD UREA NITROGEN,BUN 49 mg/dL (7-18); BUN/CREATININE RATIO 22.2 (No establ ref range); CALCIUM 9.2 mg/dL (8.5-10.1); CARBON DIOXIDE,CO2 29 mmol/L (21-32); CHLORIDE,CL 101 mmol/L (98-107); CREATININE 2.21 mg/dL (0.55-1.02); LIPASE 40 U/L (16-77); MAGNESIUM 1.8 mg/dL (1.8-2.4); POTASSIUM,K 4.5 mmol/L (3.5-5.1); PROTEIN TOTAL,TP 6.2 g/dL (6.4-8.2); SODIUM,NA 137 mmol/L (136-145)
[2024-04-04 22:21] LABS: A/G RATIO 0.94; ESTIMATED GFR 21 mL/min (>=60); GLUCOSE RANDOM 434 mg/dL (70-99)
[2024-04-05 00:42] LABS: APPEARANCE,URINE CLEAR (CLEAR); BILIRUBIN,URINE NEGATIVE (NEGATIVE); COLOR,URINE YELLOW (YELLOW); GLUCOSE,URINE 500 (NEGATIVE); KETONES,URINE NEGATIVE (NEGATIVE); LEUKOCYTE ESTERASE,URINE TRACE (NEGATIVE); NITRITE,URINE NEGATIVE (NEGATIVE); OCCULT BLOOD,URINE NEGATIVE (NEGATIVE); PROTEIN,URINE NEGATIVE (NEGATIVE); UROBILINOGEN,URINE 0.2 mg/dL (0.2-1.0)
[2024-04-05 00:54] LABS: BACTERIA,URINE FEW /HPF (0-FEW/HPF); EPITHELIAL CELLS,URINE FEW /HPF (NOT SEEN); RBC,URINE 0-5 /HPF (0-5)
== END 2024-04-05 02:05 | disposition home or self-care (01) ==
LOC: DL.ED 21:27
DX: I16.0 Hypertensive urgency (principal); I10 Essential (primary) hypertension; E11.65 Type 2 diabetes mellitus with hyperglycemia; E78.00 Pure hypercholesterolemia, unspecified; E66.9 Obesity, unspecified; Z79.899 Other long term (current) drug therapy; Z88.8 Allergy status to other drugs, medicaments and biological substances; Z88.5 Allergy status to narcotic agent
CPT/HCPCS: 36415; 71045; 80053; 81001; 82947; 83690; 83735; 83880; 84484; 85025; 87086; 93005; 93010; 96360; 99284; 99284-25; J1815-GY; J7040